=== PATIENT | male | born 1930 | race Caucasian/White ===

== ENCOUNTER 2017-07-17 09:33 | Emergency (ER) | payer MEDICARE, BC ==
[2017-07-17 10:04] VITALS: BP 128/93
--- NOTE | 2017-07-17 10:22 | EDM.PDOC ---
ED HPI GENERAL MEDICAL PROBLEM - General Chief Complaint: Upper Extremity Injury/Pain Stated Complaint: HURT RT ARM Time Seen by Provider: 07/17/17 10:05 Source of Information: Reports: Patient History Limitations: Reports: No Limitations - History of Present Illness INITIAL COMMENTS - FREE TEXT/NARRATIVE: 87-year-old male who fell last night scraping his right arm, this morning he noticed it was somewhat deeper than he anticipated so he wanted it looked at. No other injury. No other complaints. Location: Reports: Upper Extremity, Right Severity: Mild Right Arm Pain Score (Numeric/FACES): 3 - Related Data Allergies Allergy/AdvReac Type Severity Reaction Status Date / Time No Known Allergies Allergy Verified 07/17/17 09:54 Home Meds: Home Meds Ascorbic Acid [Vitamin C] 1,000 mg PO DAILY 04/19/16 [History] Aspirin [Ecotrin] 81 mg PO DAILY 04/19/16 [History] Docusate Sodium [Colace] 300 mg PO DAILY 04/19/16 [History] Glucosamine/Chondro Irving A [Glucosamine-Chondroitin Tab] 750 mg PO BID 04/19/16 [ History] Lactase [Lactaid] 3,000 unit PO DAILY 04/19/16 [History] Multivitamin [Multi-Day Vitamins] 1 each PO DAILY 04/19/16 [History] Mitchell-3/DHA/Epa/Fish Oil [Fish Oil Dr 500 mg Softgel] 1,000 mg PO BID 04/19/16 [ History] Omeprazole 40 mg PO BIDAC 04/19/16 [History] Tamsulosin HCl [Flomax] 0.8 mg PO DAILY 04/19/16 [History] Past Medical History HEENT History: Reports: Hard of Hearing, Impaired Vision Cardiovascular History: Reports: High Cholesterol Gastrointestinal History: Reports: Diverticulosis, Hiatal Hernia Other Gastrointestinal History: inguinal and ventral hernias Genitourinary History: Reports: Prostate Disorder Musculoskeletal History: Reports: Arthritis, Back Pain, Chronic Neurological History: Reports: Neuropathy, Peripheral Oncologic (Cancer) History: 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 for ca Social & Family History - Tobacco Use Smoking Status *Q: Never Smoker Second Hand Smoke Exposure: No - Caffeine Use Caffeine Use: Reports: None - Recreational Drug Use Recreational Drug Use: No Review of Systems - Review of Systems Review Of Systems: See Below Constitutional: Reports: No Symptoms Eyes: Reports: No Symptoms Respiratory: Reports: No Symptoms Neurological: Reports: No Symptoms ED EXAM, GENERAL - Physical Exam Exam: See Below Exam Limited By: No Limitations General Appearance: Alert, No Apparent Distress Head: Atraumatic Respiratory/Chest: No Respiratory Distress Extremities: Other (Exam is otherwise limited to the right arm. The patient has slight superficial bruising and an abrasion over the extensor surface of the forearm with a central deeper abrasion and skin tear roughly 1.5 x 1.5 cm.) Course - Vital Signs Last Recorded V/S: Last Vital Signs Temp 98.1 F 07/17/17 10:04 Pulse 63 07/17/17 10:04 Resp 14 07/17/17 10:04 BP 128/93 H 07/17/17 10:04 Pulse Ox 93 L 07/17/17 10:04 - Orders/Labs/Meds Meds: Medications Discontinued Medications Generic Name Dose Route Start Last Admin Trade Name Freq PRN Reason Stop Dose Admin Bacitracin 1 dose 07/17/17 10:23 07/17/17 10:33 Bacitracin Oint 1 Gm TOP 07/17/17 10:24 1 dose ONETIME ONE Administration - Re-Assessments/Exams Free Text/Narrative Re-Assessment/Exam: 07/17/17 10:19 The retracted skin epidermis flaps were replaced as close as possible, bacitracin was applied and a dressing over the wound. This should slowly scab in and heal without incident. His tetanus is current. Departure - Departure Time of Disposition: 10:47 Disposition: Home, Self-Care 01 Condition: Good Clinical Impression: Skin tear of forearm without complication Qualifiers: Encounter type: initial encounter Laterality: right Qualified Code(s): S51.811A - Laceration without foreign body of right forearm, initial encounter - Discharge Information Instructions: Contusion, [id number], Laceration Care, Adult, [id number] Referrals: PCP,None [Primary Care Provider] - Forms: ED Department Discharge Care Plan Goals: Keep wound covered and clean while healing. Recheck if concerns of infection or not healing satisfactorily.
[2017-07-17] MEDS ORDERED: Bacitracin Oint 1 GM U/D Packet TOP ONE (10:23)
== END 2017-07-17 10:47 | disposition home or self-care (01) ==
LOC: JP.ED 09:33
DX: S51.811A Laceration without foreign body of right forearm, initial encounter (principal); S50.11XA Contusion of right forearm, initial encounter; E78.00 Pure hypercholesterolemia, unspecified; Z79.82 Long term (current) use of aspirin; Z79.899 Other long term (current) drug therapy; W19.XXXA Unspecified fall, initial encounter
CPT/HCPCS: 99283